=== PATIENT | female | born 1970 | race Caucasian/White ===

== ENCOUNTER → 2017-03-23 08:11 | Outpatient (CLI) | payer OTHER, SELFPAY ==
[2017-03-23 09:36] LABS: T4 Free Direct 1.27 ng/dL (0.76-1.46); Thyroid Stim Hormone (TSH) 0.15 uIU/mL (0.358-3.74)
== END ==
PROVIDERS: Family Provider Family Medicine; PCP Family Medicine; Visit Provider Family Medicine
DX: E03.9 Hypothyroidism, unspecified (principal)
CPT/HCPCS: 36415; 84439; 84443

== ENCOUNTER → 2017-05-24 16:14 | Outpatient (CLI) | payer OTHER, SELFPAY ==
[2017-05-24 17:49] LABS: Thyroid Stim Hormone (TSH) 1.36 uIU/mL (0.358-3.74)
== END ==
PROVIDERS: Family Provider Family Medicine; PCP Family Medicine; Visit Provider Family Medicine
DX: E03.9 Hypothyroidism, unspecified (principal)
CPT/HCPCS: 36415; 84443

== ENCOUNTER → 2017-08-01 07:57 | Outpatient (CLI) | payer OTHER, SELFPAY ==
--- NOTE | 2017-08-01 08:01 | BI_ITS ---
MAMMOGRAPHY - BILATERAL SCREENING REASON FOR EXAM: Female, 46 years old. Routine annual screening examination. PERTINENT HISTORY: Non-contributory. TECHNIQUE: Digital bilateral breast alysia (3D mammographic acquisition) in the CC and MLO projections. 2-D mediolateral oblique (MLO) and craniocaudad (CC) views of both breasts were obtained. CAD: Full Field Digital Mammography with Computer Added Detection was performed. COMPARISON: Comparison is made with prior study dated July 26, 2016 and March 05, 2016. FINDINGS: Breast Composition: The breasts are extremely dense, which lowers the sensitivity of mammography. There are no dominant masses or suspicious calcifications. No other significant abnormalities are identified. There has been no significant change since the prior study. BI/SCREENING MAMM (CAD), BILAT IMPRESSION: Stable bilateral screening mammogram. Yearly follow-up mammogram recommended. (A) ASSESSMENT CATEGORY: BIRADS Category 1: Negative. A letter regarding these results will be sent to the patient by the facility within 30 days. Approximately 10% of breast cancers are not detected by mammography. A normal mammogram should not delay biopsy of a clinically suspicious abnormality. [id number] Electronically Signed: Ellis Jones MD at 7:49 EDT Tel [phone], Service support ,
== END ==
PROVIDERS: Family Provider Family Medicine; PCP Family Medicine; Visit Provider Obstetrics & Gynecology
DX: Z12.31 Encounter for screening mammogram for malignant neoplasm of breast (principal)
CPT/HCPCS: 77063; 77067

== ENCOUNTER → 2017-09-09 07:48 | Outpatient (CLI) | payer OTHER, SELFPAY ==
[2017-09-09 10:16] LABS: Hematocrit 37.8 % (37-47); Hemoglobin 12.9 g/dl (12.0-15.0); Mean Corp Hgb Conc 34.1 g/gl (32-36); Mean Corpuscular Hgb 31.4 pg (27.0-32.0); Mean Platelet Vol. 11.1 fl (6.2-12.0); Platelet Count 193 K/mm3 (150-450); RBC Distribution Width CV 11.8 % (11.6-14.6); RBC Distribution Width SD 39.3 fl (35.1-43.9); Red Blood Count 4.11 M/mm3 (4.2-5.4)
[2017-09-09 10:21] LABS: Scan Indicated on CBC? Y/N NO
[2017-09-09 10:29] LABS: Cholesterol 207 mg/dL (200); Glucose 80 mg/dL (74-106); High Density Lipoprotein 67 mg/dL; T4 Free Direct 1.14 ng/dL (0.76-1.46); Thyroid Stim Hormone (TSH) 1.44 uIU/mL (0.358-3.74); Triglycerides 69 mg/dL; Very Low Density Lipoprotein 14 mg/dL (5-40)
== END ==
PROVIDERS: Family Provider Family Medicine; PCP Family Medicine; Visit Provider Family Medicine
DX: Z00.00 Encounter for general adult medical examination without abnormal findings (principal); E03.9 Hypothyroidism, unspecified; Z13.220 Encounter for screening for lipoid disorders
CPT/HCPCS: 36415; 80061; 82306; 82947; 84439; 84443; 85027

== ENCOUNTER → 2018-08-15 | Outpatient (CLI) | payer OTHER, SELFPAY ==
--- NOTE | 2018-08-15 08:39 | BI_ITS ---
MAMMOGRAPHY - BILATERAL SCREENING REASON FOR EXAM: Female, 47 years old. Routine annual screening examination. PERTINENT HISTORY: Non-contributory. TECHNIQUE: Digital bilateral breast festus (3D mammographic acquisition) in the CC and MLO projections. 2-D mediolateral oblique (MLO) and craniocaudad (CC) views of both breasts were obtained. CAD: Full Field Digital Mammography with Computer Added Detection was performed. COMPARISON: Comparison is made with prior study dated August 01, 2017 and July 26, 2016. FINDINGS: Breast Composition: The breasts are extremely dense, which lowers the sensitivity of mammography. There are no dominant masses or suspicious calcifications. No other significant abnormalities are identified. There has been no significant change since the prior study. BI/SCREEN MAMM (CAD) W/FESTUS BILAT IMPRESSION: Stable bilateral screening mammogram. Yearly follow-up mammogram recommended. (A) ASSESSMENT CATEGORY: BIRADS Category 1: Negative. A letter regarding these results will be sent to the patient by the facility within 30 days. Approximately 10% of breast cancers are not detected by mammography. A normal mammogram should not delay biopsy of a clinically suspicious abnormality. [id number] Electronically Signed: Ellis Jones, at 10:12 EDT , Service support ,
== END | disposition home or self-care (01) ==
LOC: OPBI 08:38
PROVIDERS: Family Provider Family Medicine; PCP Family Medicine; Referring Provider Obstetrics & Gynecology; Visit Provider Obstetrics & Gynecology
DX: Z12.31 Encounter for screening mammogram for malignant neoplasm of breast (principal)
CPT/HCPCS: 77063; 77067

== ENCOUNTER → 2018-09-20 | Outpatient (CLI) | payer OTHER, SELFPAY ==
[2018-09-20 10:18] LABS: Anion Gap 7 (5-15); BUN 11 mg/dL (7-18); BUN/Creat Ratio 15.2 RATIO (10-20); Calcium,Total 9.1 mg/dL (8.5-10.1); Chloride 106 mmol/L (98-107); Cholesterol 212 mg/dL (200); Creatinine, Serum 0.72 mg/dL (0.55-1.02); EST Glomerular Filtration Rate 91 mL/min (>60); Est Glom Filt Rate - Afr Amer 110 mL/min (>60); Glucose 84 mg/dL (74-106); High Density Lipoprotein 64 mg/dL; Potassium 4.2 mmol/L (3.5-5.1); Sodium Level 141 mmol/L (136-145); Thyroid Stim Hormone (TSH) 1.09 uIU/mL (0.358-3.74); Triglycerides 60 mg/dL; Very Low Density Lipoprotein 12 mg/dL (5-40)
== END | disposition home or self-care (01) ==
LOC: LAB 08:59
PROVIDERS: Family Provider Family Medicine; PCP Family Medicine; Referring Provider Family Medicine; Visit Provider Family Medicine
DX: E03.9 Hypothyroidism, unspecified (principal)
CPT/HCPCS: 36415; 80048; 80061; 84439; 84443

== ENCOUNTER → 2019-08-13 10:16 | Outpatient (CLI) | payer OTHER, SELFPAY ==
--- NOTE | 2019-08-13 10:18 | BI_ITS ---
MAMMOGRAPHY - BILATERAL SCREENING REASON FOR EXAM: Female, 48 years old. Routine annual screening examination. PERTINENT HISTORY: Non-contributory. TECHNIQUE: Digital bilateral breast festus (3D mammographic acquisition) in the CC and MLO projections. 2-D mediolateral oblique (MLO) and craniocaudad (CC) views of both breasts were obtained. CAD: Full Field Digital Mammography with Computer Added Detection was performed. COMPARISON: Comparison is made with prior study dated August 15, 2018 and August 01, 2017. FINDINGS: Breast Composition: The breasts are extremely dense, which lowers the sensitivity of mammography. There are no dominant masses or suspicious calcifications. No other significant abnormalities are identified. There has been no significant change since the prior study. BI/SCREEN MAMM (CAD) W/FESTUS BILAT IMPRESSION: Stable bilateral screening mammogram. Yearly follow-up mammogram recommended. (A) ASSESSMENT CATEGORY: BIRADS Category 1: Negative. A letter regarding these results will be sent to the patient by the facility within 30 days. Approximately 10% of breast cancers are not detected by mammography. A normal mammogram should not delay biopsy of a clinically suspicious abnormality. [id number] Electronically Signed: Ellis Jones, at 10:53 EDT , Service support ,
== END ==
PROVIDERS: PCP Family Medicine; Referring Provider Obstetrics & Gynecology; Visit Provider Obstetrics & Gynecology
DX: Z12.31 Encounter for screening mammogram for malignant neoplasm of breast (principal)
CPT/HCPCS: 77063; 77067

== ENCOUNTER → 2019-09-23 08:11 | Outpatient (CLI) | payer OTHER, SELFPAY ==
[2019-09-23 11:21] LABS: Anion Gap 7 (5-15); BUN 12 mg/dL (7-18); BUN/Creat Ratio 17.1 RATIO (10-20); Calcium,Total 9.3 mg/dL (8.5-10.1); Chloride 101 mmol/L (98-107); Cholesterol 237 mg/dL (200); EST Glomerular Filtration Rate 94 mL/min (>60); Est Glom Filt Rate - Afr Amer 113 mL/min (>60); Glucose 84 mg/dL (74-106); High Density Lipoprotein 64 mg/dL; Potassium 4.2 mmol/L (3.5-5.1); Sodium Level 139 mmol/L (136-145); Thyroid Stim Hormone (TSH) 1.19 uIU/mL (0.358-3.74); Triglycerides 65 mg/dL; Very Low Density Lipoprotein 13 mg/dL (5-40)
== END ==
PROVIDERS: PCP Family Medicine; Referring Provider Family Medicine; Visit Provider Family Medicine
DX: Z00.00 Encounter for general adult medical examination without abnormal findings (principal); E03.9 Hypothyroidism, unspecified; Z13.220 Encounter for screening for lipoid disorders
CPT/HCPCS: 36415; 80048; 80061; 84439; 84443

== ENCOUNTER → 2020-01-29 14:48 | Outpatient (CLI) | payer OTHER, SELFPAY ==
[2020-01-29 17:54] LABS: T4 Free Direct 1.33 ng/dL (0.76-1.46); Thyroid Stim Hormone (TSH) 0.49 uIU/mL (0.358-3.74)
== END ==
PROVIDERS: PCP Family Medicine; Referring Provider Family Medicine; Visit Provider Family Medicine
DX: E03.9 Hypothyroidism, unspecified (principal)
CPT/HCPCS: 36415; 84439; 84443

== ENCOUNTER → 2020-07-12 12:34 | Outpatient (CLI) | payer OTHER, SELFPAY ==
--- NOTE | 2020-07-12 12:36 | BI_ITS ---
MAMMOGRAPHY - BILATERAL SCREENING REASON FOR EXAM: Female, 49 years old. Routine annual screening examination. PERTINENT HISTORY: Non-contributory. TECHNIQUE: Digital bilateral breast festus (3D mammographic acquisition) in the CC and MLO projections. 2-D mediolateral oblique (MLO) and craniocaudad (CC) views of both breasts were obtained. CAD: Full Field Digital Mammography with Computer Added Detection was performed. COMPARISON: Comparison is made with prior examination dated 08/13/2019 and 08/15/2018. FINDINGS: Breast Composition: The breasts are extremely dense, which lowers the sensitivity of mammography. There are no dominant masses or suspicious calcifications. No other significant abnormalities are identified. There has been no significant change since the prior study. BI/SCRN MAMM (CAD)W/FESTUS BILAT IMPRESSION: Stable bilateral screening mammogram. Yearly follow-up mammogram recommended. (A) ASSESSMENT CATEGORY: BIRADS Category 1: Negative. A letter regarding these results will be sent to the patient by the facility within 30 days. Approximately 10% of breast cancers are not detected by mammography. A normal mammogram should not delay biopsy of a clinically suspicious abnormality. [id number] Electronically Signed: Ellis Jones MD at 13:10 EDT , Service support ,
== END ==
PROVIDERS: PCP Family Medicine; Referring Provider Obstetrics & Gynecology; Visit Provider Obstetrics & Gynecology
DX: Z12.31 Encounter for screening mammogram for malignant neoplasm of breast (principal)
CPT/HCPCS: 77063; 77067

== ENCOUNTER → 2020-09-22 07:50 | Outpatient (CLI) | payer OTHER, SELFPAY ==
[2020-09-22 10:49] LABS: Anion Gap 8 (5-15); BUN 13 mg/dL (7-18); BUN/Creat Ratio 19.2 RATIO (10-20); Calcium,Total 9.6 mg/dL (8.5-10.1); Chloride 102 mmol/L (98-107); Cholesterol 252 mg/dL (200); Creatinine, Serum 0.68 mg/dL (0.55-1.02); EST Glomerular Filtration Rate 97 mL/min (>60); Est Glom Filt Rate - Afr Amer 117 mL/min (>60); Glucose 90 mg/dL (74-106); High Density Lipoprotein 66 mg/dL; Potassium 4.7 mmol/L (3.5-5.1); Sodium Level 139 mmol/L (136-145); T4 Free Direct 1.19 ng/dL (0.76-1.46); Thyroid Stim Hormone (TSH) 0.91 uIU/mL (0.358-3.74); Triglycerides 97 mg/dL; Very Low Density Lipoprotein 19 mg/dL (5-40)
== END ==
PROVIDERS: PCP Family Medicine; Referring Provider Family Medicine; Visit Provider Family Medicine
DX: E03.9 Hypothyroidism, unspecified (principal)
CPT/HCPCS: 36415; 80048; 80061; 84439; 84443

== ENCOUNTER → 2020-09-29 09:08 | Outpatient (CLI) | payer OTHER, SELFPAY ==
--- NOTE | 2020-09-29 09:10 | RAD_ITS ---
STUDY: X-RAY - PARANASAL SINUSES REASON FOR EXAM: Female, 49 years old. MIGRAINE W/O AURA TECHNIQUE: 3 view(s) of the paranasal sinuses were obtained. COMPARISON: None. FINDINGS: Normal visualized frontal, maxillary, ethmoidal and sphenoid sinuses. Normal visualized facial bones. The soft tissue structures are unremarkable. RAD/Sinuses min 3 Views IMPRESSION: Normal x-rays of the paranasal sinuses. Electronically Signed: Ellis Jones MD at 9:39 EDT , Service support ,
== END ==
PROVIDERS: PCP Family Medicine; Referring Provider Family Medicine; Visit Provider Family Medicine
DX: G43.001 Migraine without aura, not intractable, with status migrainosus (principal)
CPT/HCPCS: 70220

== ENCOUNTER → 2020-12-29 | Outpatient (CLI) | payer OTHER, SELFPAY ==
--- NOTE | 2020-12-29 12:00 | LES_PTH ---
PATIENT: EMILIO HERNANDES LOC: [facility] U#:[id number] AGE/SX: 50/F ROOM: RE12/29/[address]: Dr. Harley Ordonez MD : 1970 BED: DIS: 12/29/2020 SPEC #: [id number] RECD: 12/29/20 14:57 STATUS: MAMADOU DIAZ #: [id number] RICARDO: 12/29/20 12:[address]: Harley Ordonez DEPT: SURGICAL PATHOLOGY RECD BY: Caro Bustamante Tissues: Skin of neck, NOS Procedures: Surgery Specimen Level IV HEADER OPERATION: Excision PRE-OP DIAGNOSIS: Rule out melanoma TISSUE SUBMITTED: Nevus atypical MICROSCOPIC DIAGNOSIS Atypical nevus, punch biopsy: Pigmented seborrheic keratosis. Negative for melanocytic lesion. See comment. HEENA:[email or web address] 01/02/2021 COMMENT The lesion appears to be completely excised in the planes of sections examined. MICROSCOPIC DESCRIPTION Slides are reviewed. GROSS DESCRIPTION Received is one container labeled with the patient's name and not further designated. The specimen consists of a light blount punch biopsy of skin measuring 5 mm in diameter and 0.6 cm in thickness. The cutaneous surface contains a flat hyperpigmented lesion measuring approximately 3 mm. The specimen is inked, bisected and totally submitted in one cassette. / AM:gonzalez 12/30/20 TC:1 CPT: 13144
== END | disposition home or self-care (01) ==
LOC: LABSPEC 15:05
PROVIDERS: PCP Family Medicine; Visit Provider Family Medicine
DX: L82.1 Other seborrheic keratosis (principal)
CPT/HCPCS: 88305

== ENCOUNTER 2021-04-03 17:28 | Outpatient (CLI) | payer MEDICARE, SELFPAY | END 2021-04-03 23:59 | disposition home or self-care (01) | PROVIDERS: PCP Family Medicine; Visit Provider Family Medicine | DX: Z20.822 Contact with and (suspected) exposure to COVID-19 (principal) | CPT/HCPCS: 87635; U0003; U0005 ==

== ENCOUNTER → 2021-09-01 | Outpatient (CLI) | payer OTHER, SELFPAY ==
--- NOTE | 2021-09-01 14:06 | BI_ITS ---
MAMMOGRAPHY - BILATERAL SCREENING REASON FOR EXAM: Female, 50 years old. Routine annual screening examination. PERTINENT HISTORY: Non-contributory. TECHNIQUE: Digital bilateral breast festus (3D mammographic acquisition) in the CC and MLO projections. 2-D mediolateral oblique (MLO) and craniocaudad (CC) views of both breasts were obtained. CAD: Full Field Digital Mammography with Computer Added Detection was performed. COMPARISON: Comparison is made with prior study dated 07/12/2020 and 08/13/2019. FINDINGS: Breast Composition: The breasts are heterogeneously dense, which may obscure small masses. There are no dominant masses or suspicious calcifications. No other significant abnormalities are identified. There has been no significant change since the prior study. BI/SCRN MAMM (CAD)W/FESTUS BILAT IMPRESSION: Stable bilateral screening mammogram. Yearly follow-up mammogram recommended. (A) ASSESSMENT CATEGORY: BIRADS Category 1: Negative. A letter regarding these results will be sent to the patient by the facility within 30 days. Approximately 10% of breast cancers are not detected by mammography. A normal mammogram should not delay biopsy of a clinically suspicious abnormality. [id number] Electronically Signed: Ellis Jones MD at 14:47 EDT ,
== END | disposition home or self-care (01) ==
LOC: OPBI 14:04
PROVIDERS: PCP Family Medicine; Referring Provider Obstetrics & Gynecology; Visit Provider Obstetrics & Gynecology
DX: Z12.31 Encounter for screening mammogram for malignant neoplasm of breast (principal)
CPT/HCPCS: 77063; 77067

== ENCOUNTER → 2021-10-21 | Outpatient (CLI) | payer OTHER, SELFPAY ==
[2021-10-21 12:08] LABS: Anion Gap 6 (5-15); BUN 14 mg/dL (7-18); BUN/Creat Ratio 20.1 RATIO (10-20); Calcium,Total 9.5 mg/dL (8.5-10.1); Chloride 105 mmol/L (98-107); Cholesterol 234 mg/dL (200); EST Glomerular Filtration Rate 94 mL/min (>60); Est Glom Filt Rate - Afr Amer 114 mL/min (>60); Glucose 85 mg/dL (74-106); High Density Lipoprotein 65 mg/dL; Potassium 4.1 mmol/L (3.5-5.1); Sodium Level 138 mmol/L (136-145); T4 Free Direct 1.09 ng/dL (0.76-1.46); Thyroid Stim Hormone (TSH) 0.93 uIU/mL (0.358-3.74); Triglycerides 66 mg/dL; Very Low Density Lipoprotein 13 mg/dL (5-40)
== END | disposition home or self-care (01) ==
LOC: LAB 10:21
PROVIDERS: PCP Family Medicine; Referring Provider Family Medicine; Visit Provider Family Medicine
DX: E03.9 Hypothyroidism, unspecified (principal); Z13.220 Encounter for screening for lipoid disorders; Z13.1 Encounter for screening for diabetes mellitus
CPT/HCPCS: 36415; 80048; 80061; 84439; 84443

== ENCOUNTER → 2022-09-03 | Outpatient (CLI) | payer OTHER, SELFPAY ==
--- NOTE | 2022-09-03 07:12 | BI_ITS ---
MAMMOGRAPHY - BILATERAL SCREENING REASON FOR EXAM: Female, 51 years old. Routine annual screening examination. PERTINENT HISTORY: Non-contributory. TECHNIQUE: Digital bilateral breast festus (3D mammographic acquisition) in the CC and MLO projections. 2-D mediolateral oblique (MLO) and craniocaudad (CC) views of both breasts were obtained. CAD: Full Field Digital Mammography with Computer Added Detection was performed. COMPARISON: Comparison is made with prior study dated September 01, 2021 and July 13, 2019. FINDINGS: Breast Composition: The breasts are extremely dense, which lowers the sensitivity of mammography. There are no dominant masses or suspicious calcifications. No other significant abnormalities are identified. There has been no significant change since the prior study. BI/SCRN MAMM (CAD)W/FESTUS BILAT IMPRESSION: Stable bilateral screening mammogram. Yearly follow-up mammogram recommended. (A) ASSESSMENT CATEGORY: BIRADS Category 1: Negative. A letter regarding these results will be sent to the patient by the facility within 30 days. Approximately 10% of breast cancers are not detected by mammography. A normal mammogram should not delay biopsy of a clinically suspicious abnormality. [id number] Electronically Signed: Ellis Jones MD at 8:48 EDT ,
== END | disposition home or self-care (01) ==
LOC: OPBI 07:11
PROVIDERS: PCP Family Medicine; Referring Provider Obstetrics & Gynecology; Visit Provider Obstetrics & Gynecology
DX: Z12.31 Encounter for screening mammogram for malignant neoplasm of breast (principal)
CPT/HCPCS: 77063; 77067

== ENCOUNTER → 2022-11-16 | Outpatient (CLI) | payer OTHER, SELFPAY ==
[2022-11-16 10:18] LABS: Hematocrit 38.1 % (37-47); Hemoglobin 12.4 g/dL (12.0-15.0); Mean Corp Hgb Conc 32.5 g/dL (32-36); Mean Corpuscular Hgb 30.5 pg (27.0-32.0); Mean Corpuscular Volume 93.6 fL (81-99); Mean Platelet Vol. 10.6 fl (6.2-12.0); Platelet Count 261 K/mm3 (150-450); RBC Distribution Width CV 12.3 % (11.6-14.6); RBC Distribution Width SD 42.2 fl (35.1-43.9); Red Blood Count 4.07 M/mm3 (4.2-5.4); White Blood Count 4.3 K/mm3 (4.4-11.0)
[2022-11-16 10:56] LABS: Anion Gap 4 (5-15); BUN 10 mg/dL (7-18); Calcium,Total 9.1 mg/dL (8.5-10.1); Chloride 104 mmol/L (98-107); Cholesterol 208 mg/dL (200); Creatinine, Serum 0.77 mg/dL (0.55-1.02); EST Glomerular Filtration Rate 83 mL/min (>60); Est Glom Filt Rate - Afr Amer 101 mL/min (>60); Glucose 87 mg/dL (74-106); High Density Lipoprotein 50 mg/dL; Potassium 3.9 mmol/L (3.5-5.1); Sodium Level 137 mmol/L (136-145); T4 Free Direct 1.32 ng/dL (0.76-1.46); Thyroid Stim Hormone (TSH) 1.75 uIU/mL (0.358-3.74); Triglycerides 104 mg/dL; Very Low Density Lipoprotein 21 mg/dL (5-40)
== END | disposition home or self-care (01) ==
LOC: MTLAB 07:14
PROVIDERS: PCP Family Medicine; Referring Provider Family Medicine; Visit Provider Family Medicine
DX: E03.9 Hypothyroidism, unspecified (principal); Z13.220 Encounter for screening for lipoid disorders; Z80.6 Family history of leukemia; Z13.1 Encounter for screening for diabetes mellitus
CPT/HCPCS: 36415; 80048; 80061; 84439; 84443; 85027

== ENCOUNTER → 2023-03-06 | Outpatient (CLI) | payer OTHER, SELFPAY ==
--- OUTSIDE RECORDS SUMMARY | 2023-03-06 10:40 | XMS RPT_ITS | CCD ---
Author Name Unknown Address [id number] [place] [address] Organization [facility] Care Team Providers Care Mail Censor Name Role Phone Harley Lynn MD Primary Care Provider HAYLEY KEVIN Attending Unavail [facility] HARLEY LYNN Primary Care Unavailabl e Allergies Allergy Classification Reported Allergen(s) Allergy Type Date of Onset Reaction(s) Facility (2 sources) Erythromycin; Translations: [ERYTHROMYCIN] Drug Allergy 5 Intolerance [facility] Work Phone: (2 sources) Penicillins; Translations: [PENICILLINS] Drug Allergy 5 [facility] (2 sources) Sulfonamides (Antibiotic); Translations: [SULFA (SULFONAMIDE ANTIBIOTICS)] Propensity to adverse reactions to drug 5 [facility] (2 sources) venlafaxine; Translations: [VENLAFAXINE HCL] Drug Allergy 9 Intolerance [facility] Medications Completed/Discontinued Medications Medication Drug Class(es) Dates Sig (Normalized) Sig (Original) cholecalciferol 0.025 mg oral capsule (1 source) Vitamin D take 1 capsule by mouth once daily Cholecalciferol, Vitamin D3, (VITAMIN D) 1,000 unit cap Take 1,000 Units by mouth once daily. 0 Active Problems Active Problems Problem Classification Problem Date Documented Da te Episodic/Chronic Headache; including migraine (2 sources) Migraine variants; Translations: [Other migraine, not intractable, without status migrainosus] Onset: 07-23-2007 06-18-2005 Chronic Other female genital disorders (1 source) Premenstrual tension syndrome; Translations: [Premenstrual tension syndrome] Onset: 07-07-2008 07-07-2008 Chronic Other gastrointestinal disorders (1 source) Constipation; Translations: [Constipation, unspecified] 06-18-2005 Episodic Other inflammatory condition of skin (1 source) Rosacea; Translations: [Rosacea, unspecified] Onset: 09-08-2007 09-08-2007 Chronic Other screening for suspected conditions (not mental disorders or infectious disease) (3 sources) Patient encounter status; Translations: [Encounter for screening mammogram for malignant neoplasm of breast] Onset: 07-07-2008 01-23-2023 Episodic Past or Other Problems Problem Classification Problem Date Documented Da te Episodic/Chronic Conditions associated with dizziness or vertigo (1 source) Peripheral vertigo; Translations: [Other peripheral vertigo, unspecified ear] Onset: 09-08-2007 09-08-2007 Episodic Results Test Name Value Interpretation Reference Range Facil ity Vital Signs Date Time Vital Sign Value Performing Clinician Faci lity 01-23-2023 13:11-0500 Body height 160 cm Hayley Ascencio MD Work Phone: [facility] 01-23-2023 13:11-0500 Body weight 51.53 kg Hayley Ascencio MD Work Phone: [facility] 01-23-2023 13:11-0500 Diastolic blood pressure 80 mm[Hg] Hayley Ascencio MD Work Phone: [facility] 01-23-2023 13:11-0500 Systolic blood pressure 126 mm[Hg] Hayley Ascencio MD Work Phone: [facility] Encounters Encounter Date Encounter Type Care Provider Facility Start: 01-23-2023 End: 01-24-2023 ambulatory HAYLEY ASCENCIO Facility:[facility] Start: 01-23-2023 Encounter for gynecological examination (general) (routine) without abnormal findings HAYLEY ASCENCIO [facility] Start: 01-23-2023 End: 01-23-2023 Patient encounter procedure Hayley Ascencio MD Work Phone: OB/Gynecology Procedures Date Procedure Procedure Detail Performing Clinician Start: 09-05-2007 Lipid 1996 panel - S jus or Plasma Hayley Ascencio MD Work Phone: Plan of Treatment Date Care Activity Detail Author Start: 09-24-2027 Urine microalbumin profile DTaP,Tdap,Td Vaccine (2 - Td or Tdap) [facility] Start: 08-25-2026 Screening for malignant neoplasm of cervix [facility] Start: 09-08-2024 Screening for malignant neoplasm of colon [facility] Start: 09-04-2023 Screening for malignant neoplasm of breast Mammogram Screening [facility] Start: 10-12-2022 Covid-19 Vaccine () Covid-19 Vaccine () [facility] Start: 02-11-2022 Depression Assessment Depression Assessment [facility] Start: 2018 Shingrix Vaccine (1 of 2) Shingrix Vaccine (1 of 2) [facility] Start: 2013 Diabetes Screening Diabetes Screening [facility] Start: 2013 Lipid panel Lipid Screening [facility] Start: 2013 Screening for malignant neoplasm of colon [facility] Start: 1986 Hepatitis C screening Hepatitis C Screening [facility] Start: 1986 HIV screening HIV Screening [facility] Start: 1968 Hepatitis B Vaccine (1 of 3 - 3-dose series) Hepatitis B Vaccine (1 of 3 - 3-dose series) [facility] End: 02-22-2024 FRANCIA SCREENING W FESTUS FRANCIA SCREENING W FESTUS Radiology Routine Encounter for screening mammogram for malignant neoplasm of breast 1 Occurrences starting 01/23/2023 until 02/22/2024 [facility] Work Phone: Immunizations Immunization Date Immunization Notes Care Provider Fa cility 03-16-2020 COVID-19 original vaccine, age 12+ yr, monovalent (PFIZER-BIONTECH - PURPLE TOP) Hayley Ascencio MD Work Phone: [facility] Work Phone: 02-24-2020 COVID-19 original vaccine, age 12+ yr, monovalent (PFIZER-BIONTECH - PURPLE TOP) Hayley Ascencio MD Work Phone: [facility] Work Phone: 09-23-2017 tetanus toxoid, redu mariama diphtheria toxoid, and acellular pertussis vaccine, adsorbed Hayley Ascencio MD Work Phone: [facility] Work Phone: 12-17-2005 influenza virus vaccine, unspecified formulation Hayley Ascencio MD Work Phone: [facility] 01-11-2001 influenza virus vaccine, whole virus Hayley Ascencio MD Work Phone: [facility] 01-12-2000 influenza virus vaccine, whole virus Hayley Ascencio MD Work Phone: [facility] 12-12-1998 influenza virus vaccine, whole virus Hayley Ascencio MD Work Phone: [facility] Payers Date Payer Category Payer Private Health Insurance [facility] [employer] CHOICE PLUS [id number] 2021-Present [phone] [address] [address] [place] [address] O [id number] 2021 Unknown [id number] Social History Date Type Detail Facility Start: 01-23-2023 Tobacco smoking stat RUSTIS Ex-smoker [facility] End: 12-13-2003 History of tobacco use Current smoker [facility] End: 12-13-2003 History of tobacco use Cigarette Smoker [facility] Start: 01-23-2023 Tobacco use and exposure Smoke less tobacco non-user [facility] Start: 01-23-2023 Alcohol intake Lifetime non-d kobe (finding) [facility] Start: 10-08-2022 End: 01-23-2023 History of Social function [facility] Start: 10-08-2022 End: 01-23-2023 Tobacco use panel [facility] National Score (1-10 0), lower number is lower risk 54 [facility] Start: 01-23-2023 Tobacco Comment quit smoking [address] [facility] Start: 1970 Sex Assigned At Not on file C [facility] Start: 08-24-2021 Gender identity Identifies as female gender (finding) [facility] Start: 08-24-2021 Sexual orientation Heterosexual (leigh tolu) [facility] Progress note 01-23-2023 Note Date & Type Note Facility 01-23-2023 Note HNO ID: [id number] Author: Hayley Kevin MD Service: ? Author Type: Physician Type: Progress Notes Filed: 01/23/2023 2:06 PM Note Text: Nonprofit Fundraiser offered: Patient declines. Shruthi is a 52 year old who presents for an annual gynecologic exam without complaints. New grandson age 3 weeks old. Does not always Feel safe at home- has reported to police- still with but considering leaving- he is still using ETOH. Postmenopausal: Yes HRT use: No. Last Pap: 09/01/2021 normal HPV: 08/29/2021 negative History of abnormal pap: No Last mammogram: 2022 normal History of abnormal mammogram: No Sexually active: Yes History of STDS: None Patient concerns for STD exposure: No. 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 Professor History Comments: Sexual Activity: Not Currently; Male; Tubal Contraception: Tubal Ligation PAST MEDICAL HISTORY Diagnosis Date Libido, decreased 09/29/2010 Malaise and fatigue Resolved on Thyroid Premenstrual tension syndromes PMS Unspecified constipation Constipation Unspecified hypothyroidism 2010 Hypothyroidism Unspecified legally induced without mention of complication Variants of migraine, not elsewhere classified, without mention of intractable migraine without mention of status migrainosus PAST SURGICAL HISTORY Procedure Laterality Date LIG/TRNSXJ FLP TUBE ABDL/VAG APPR UNI/BI 2001 Tubal ligation OFFICE ENDOMETRIAL ABLATION 10/31/2013 PAST SURGICAL HISTORY OF wisdom teeth suction dANDc 1987 FAMILY HISTORY Problem Relation Age of Onset Cancer Mother Arthritis Mother Thyroid Mother Hypertension Mother Clotting Disorder Father in lungs Thyroid Sister other (Bi-Polar) Sister other (Bi-Polar) Brother Thyroid Maternal Grandmother Heart Maternal Grandfather Thyroid Paternal Grandmother Osteoporosis Paternal Grandmother Diabetes Maternal Aunt Thyroid Maternal Aunt Several on both sides of family SOCIAL HISTORY Social History Tobacco Use Smoking status: Former Years: 6 Types: Cigarettes Quit date: 12/13/2003 Years since quittin.1 Smokeless tobacco: Never Tobacco comments: quit smoking 1993 Vaping Use Vaping Use: Never used Substance Use Topics Alcohol use: Never Drug use: No REVIEW OF SYSTEMS Abdomen: No abdominal pain, nausea, vomiting, diarrhea, or constipation. No bloating, early satiety, indigestion, or increased flatulence. Bladder: No dysuria, gross hematuria, urinary frequency, urinary urgency, or incontinence Breast: No breast lumps, nipple d/c, overlying skin changes, redness or skin retraction Allergies and current medication updated:Yes EXAM: BP 126/80 Ht 5' 3 (1.60m) Wt 113 lb 9.6 oz (51.5kg) LMP 06/16/2018 BMI 20.13 kg/(m2). GENERAL: pleasant, female in no apparent distress HEENT: Normocephalic, atraumatic, mucus membranes moist, and no lesions NECK: Supple, full range of motion, no adenopathy, and thyroid normal DERMATOLOGY: Normal, without lesions, non-icteric, and non-hirsute BREAST: soft, non-tender, symmetric, no dominant mass, normal nipple-areolar complex, no lymphadenopathy, and no nipple discharge ABDOMEN: soft, non-tender, and no masses PELVIC: external genitalia normal, normal Bartholin's glands, urethra, Meacham's glands, no vulvar lesions, no cervical lesions, good vaginal support, physiologic discharge present, normal appearing perineal body and perianal region BIMANUAL: uterus normal size, shape and consistency, no adnexal masses, and non-tender RECTOVAGINAL: deferred. NEURO: alert and oriented x3,exam grossly non-focal EXTREMITIES: normal ASSESSMENT/PLAN: 1) Health maintenance: Pap/HPV up to date. Mammogram ordered Mammogram up to date Nutrition, exercise and routine health maintenance exams reviewed. Calcium/Vitamin D supplementation information provided. Colon cancer screening: cologuard done 2022 2) Follow up one year or sooner as needed 3) Offered SW consult. Discussed having safe plan in place. Hayley Hutchins MD [facility] History of Present illness Narrative 01-23-2023 Hayley Kevin MD - 01/23/2023 1:10 PM EST Note Date & Type Note Facility 01-23-2023 History of Presen t illness Narrative Nonprofit Fundraiser offered: Patient declines. Shruthi is a 52 year old who presents for an annual gynecologic exam without complaints. New grandson age 3 weeks old. Does not always Feel\ safe at home- has reported to police- still with but considering leaving- he is still using ETOH. Postmenopausal: Yes HRT use: No. Last Pap: 09/01/2021 normal HPV: 08/29/2021 negative History of abnormal pap: No Last mammogram: 2022 normal History of abnormal mammogram: No Sexually active: Yes History of STDS: None Patient concerns for STD exposure: No. 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 Professor History Comments: Sexual Activity: Not Currently; Male; Tubal Contraception: Tubal Ligation PAST MEDICAL HISTORY Diagnosis Date Libido, decreased 09/29/2010 Malaise and fatigue Resolved on Thyroid Premenstrual tension syndromes PMS Unspecified constipation Constipation Unspecified hypothyroidism 2010 Hypothyroidism Unspecified legally induced without mention of complication Variants of migraine, not elsewhere classified, without mention of intractable migraine without mention of status migrainosus PAST SURGICAL HISTORY Procedure Laterality Date LIG/TRNSXJ FLP TUBE ABDL/VAG APPR UNI/BI 2001 Tubal ligation OFFICE ENDOMETRIAL ABLATION 10/31/2013 PAST SURGICAL HISTORY OF wisdom teeth suction d&c 1987 FAMILY HISTORY Problem Relation Age of Onset Cancer Mother Arthritis Mother Thyroid Mother Hypertension Mother Clotting Disorder Father in lungs Thyroid Sister other (Bi-Polar) Sister other (Bi-Polar) Brother Thyroid Maternal Grandmother Heart Maternal Grandfather Thyroid Paternal Grandmother Osteoporosis Paternal Grandmother Diabetes Maternal Aunt Thyroid Maternal Aunt Several on both sides of family SOCIAL HISTORY Social History Tobacco Use Smoking status: Former Years: 6 Types: Cigarettes Quit date: 12/13/2003 Years since quittin.1 Smokeless tobacco: Never Tobacco comments: quit smoking 1993 Vaping Use Vaping Use: Never used Substance Use Topics Alcohol use: Never Drug use: No REVIEW OF SYSTEMS Abdomen: No abdominal pain, nausea, vomiting, diarrhea, or constipation. No bloating, early satiety, indigestion, or increased flatulence. Bladder: No dysuria, gross hematuria, urinary frequency, urinary urgency, or incontinence Breast: No breast lumps, nipple d/c, overlying skin changes, redness or skin retraction Allergies and current medication updated:Yes EXAM: BP 126/80 Ht 5' 3 (1.60m) Wt 113 lb 9.6 oz (51.5kg) LMP 06/16/2018 BMI 20.13 kg/(m^2). GENERAL: pleasant, female in no apparent distress HEENT: Normocephalic, atraumatic, mucus membranes moist, and no lesions NECK: Supple, full range of motion, no adenopathy, and thyroid normal DERMATOLOGY: Normal, without lesions, non-icteric, and non-hirsute BREAST: soft, non-tender, symmetric, no dominant mass, normal nipple-areolar complex, no lymphadenopathy, and no nipple discharge ABDOMEN: soft, non-tender, and no masses PELVIC: external genitalia normal, normal Bartholin's glands, urethra, Meacham's glands, no vulvar lesions, no cervical lesions, good vaginal support, physiologic discharge present, normal appearing perineal body and perianal region BIMANUAL: uterus normal size, shape and consistency, no adnexal masses, and non-tender RECTOVAGINAL: deferred. NEURO: alert and oriented x3,exam grossly non-focal EXTREMITIES: normal ASSESSMENT/PLAN: 1) Health maintenance: Pap/HPV up to date. Mammogram ordered Mammogram up to date Nutrition, exercise and routine health maintenance exams reviewed. Calcium/Vitamin D supplementation information provided. Colon cancer screening: cologuard done 2022 2) Follow up one year or sooner as needed 3) Offered SW consult. Discussed having safe plan in place. Hayley Hutchins MD documented in this encounter [facility] History of Past illness Narrative 09-29-2010 Note Date & Type Note Facility documented as of this encounter (statuses as of 01/24/2023) [facility] Evaluation note Note Date & Type Note Facility documented in this encounter [facility] Reason for referral (narrative) Diagnostic Procedure Only (Routine) - Pending Review Note Date & Type Note Facility Referral ID Status Reason Start Date Expiration Date Visits Requested Visits Authorized [id number] Pending Review Auto-Generat ed Referral 3 02/22/2024 1 1 [facility] Summary Purpose Family History No Family History Records Found Advance Directives No Advanced Directives Records Found Additional Source Comments Source Comments (unrecognize d section and content) In the event this informatio n is protected by the Federal Confidentiality of Alcohol and Drug Abuse Patient Records regulations: The Federal rules restrict any use of the information to criminally investigate or prosecute any alcohol or drug abuse patient.[facility] Care Teams (unrecognized sec tion and content) INFORMATION SOURCE (unrecogn ized section and content) FOR RECORDS PERTAINING TO PATIENTS WHO ARE OR HAVE BEEN ENROLLED IN A CHEMICAL DEPENDENCY/SUBSTANCEABUSE PROGRAM, SOME INFORMATION MAY BE OMITTED. This clinical summary was aggregated from multiple sources. Caution should be exercised in using it in the provision of clinical care. This summary normalizes information from multiple sources, and as a consequence, information in this document may materially change the coding, format and clinical context of patient data. In addition, data may be omitted in some cases. CLINICAL DECISIONS SHOULD BE BASED ON THE PRIMARY CLINICAL RECORDS. [facility] [employer] [facility]. provides no warranty or guarantee of the accuracy or completeness of information in this document.
[2023-03-06 12:29] LABS: Erythrocyte Sedimentation Rate 9 mm/hr (0-30)
[2023-03-06 12:31] LABS: Hematocrit 35.9 % (37-47); Hemoglobin 11.8 g/dL (12.0-15.0); Mean Corp Hgb Conc 32.9 g/dL (32-36); Mean Corpuscular Volume 91.3 fL (81-99); Mean Platelet Vol. 10.4 fl (6.2-12.0); Platelet Count 274 K/mm3 (150-450); RBC Distribution Width CV 12.3 % (11.6-14.6); Red Blood Count 3.93 M/mm3 (4.2-5.4)
[2023-03-06 13:03] LABS: Vitamin B12 725 pg/mL (211-911); Vitamin D,25 Hydroxy 36.7 ng/mL
[2023-03-06 13:41] LABS: ALB/GLOB Ratio 1.4 RATIO (0.9-2.4); AST(SGOT) 18 U/L (15-37); Alanine Aminotransfer ALT/SGPT 39 U/L (13-56); Albumin, Serum 4.2 g/dL (3.2-5.0); Alkaline Phosphatase 89 U/L (45-117); Anion Gap 4 (5-15); BUN 12 mg/dL (7-18); Calcium,Total 9.8 mg/dL (8.5-10.1); Chloride 107 mmol/L (98-107); EST Glomerular Filtration Rate 92 mL/min (>60); Est Glom Filt Rate - Afr Amer 111 mL/min (>60); Ferritin 285 ng/mL (8-252); Glucose 85 mg/dL (74-106); Iron 82 ug/dL (50-170); Potassium 3.6 mmol/L (3.5-5.1); Protein, Total 7.2 g/dL (6.4-8.2); Sodium Level 139 mmol/L (136-145); T4 Free Direct 1.16 ng/dL (0.76-1.46); Thyroid Stim Hormone (TSH) 0.63 uIU/mL (0.358-3.74)
== END | disposition home or self-care (01) ==
LOC: MFPLAB 10:24
PROVIDERS: PCP Family Medicine; Visit Provider Family Medicine
DX: G43.001 Migraine without aura, not intractable, with status migrainosus (principal); E03.9 Hypothyroidism, unspecified
CPT/HCPCS: 36415; 80053; 82306; 82607; 82728; 83540; 84439; 84443; 85027; 85652

== ENCOUNTER → 2023-07-24 | Outpatient (CLI) | payer OTHER, SELFPAY ==
--- NOTE | 2023-07-24 15:18 | RAD_ITS ---
STUDY: X-RAY - RIGHT WRIST REASON FOR EXAM: Female, 52 years old. Injury TECHNIQUE: 3 view(s) of the wrist were obtained. COMPARISON: None. FINDINGS: Normal visualized distal radius and ulna. Normal radiocarpal articulation. Normal distal radioulnar articulation. Normal carpal bones. Normal carpal articulations. Normal carpometacarpal articulation of the thumb. Normal second through fifth carpometacarpal articulations. Normal visualized metacarpal bones. The soft tissue structures are unremarkable. RAD/Wrist min 3 Views IMPRESSION: Normal x-ray examination of the wrist. Electronically Signed: Ellis Jones MD at 15:53 EDT ,
== END | disposition home or self-care (01) ==
LOC: MTRAD 15:17
PROVIDERS: PCP Family Medicine; Referring Provider Nurse Practitioner Family; Visit Provider Nurse Practitioner Family
DX: S69.91XA Unspecified injury of right wrist, hand and finger(s), initial encounter (principal); X58.XXXA Exposure to other specified factors, initial encounter
CPT/HCPCS: 73110

== ENCOUNTER → 2023-11-27 | Outpatient (CLI) | payer OTHER, SELFPAY ==
[2023-11-27 10:43] LABS: Anion Gap 6 (5-15); BUN 13 mg/dL (7-18); BUN/Creat Ratio 17.8 RATIO (10-20); Calcium,Total 9.8 mg/dL (8.5-10.1); Chloride 106 mmol/L (98-107); Cholesterol 240 mg/dL (200); Creatinine, Serum 0.73 mg/dL (0.55-1.02); EST Glomerular Filtration Rate 88 mL/min (>60); Est Glom Filt Rate - Afr Amer 106 mL/min (>60); Ferritin 180 ng/mL (8-252); Glucose 88 mg/dL (74-106); High Density Lipoprotein 67 mg/dL; Potassium 5.2 mmol/L (3.5-5.1); Sodium Level 139 mmol/L (136-145); T4 Free Direct 1.03 ng/dL (0.76-1.46); Triglycerides 66 mg/dL; Very Low Density Lipoprotein 13 mg/dL (5-40)
== END | disposition home or self-care (01) ==
LOC: MTLAB 07:16
PROVIDERS: PCP Family Medicine; Referring Provider Family Medicine; Visit Provider Family Medicine
DX: Z13.220 Encounter for screening for lipoid disorders (principal); E03.9 Hypothyroidism, unspecified
CPT/HCPCS: 36415; 80048; 80061; 82728; 84439; 84443

== ENCOUNTER → 2024-01-10 | Outpatient (CLI) | payer OTHER, SELFPAY ==
--- NOTE | 2024-01-10 10:53 | BI_ITS ---
MAMMOGRAPHY - BILATERAL SCREENING REASON FOR EXAM: Female, 53 years old. Routine annual screening examination. PERTINENT HISTORY: Non-contributory. History of prior left breast aspirations. TECHNIQUE: Digital bilateral breast festus (3D mammographic acquisition) in the CC and MLO projections. 2-D mediolateral oblique (MLO) and craniocaudad (CC) views of both breasts were obtained. CAD: Full Field Digital Mammography with Computer Added Detection was performed. COMPARISON: Comparison is made with prior study September 03, 2022 and September 01, 2021. FINDINGS: Breast Composition: The breasts are extremely dense, which lowers the sensitivity of mammography. There are no dominant masses or suspicious calcifications. No other significant abnormalities are identified. There has been no significant change since the prior study. BI/SCRN MAMM (CAD)W/FESTUS BILAT IMPRESSION: Stable bilateral screening mammogram. Yearly follow-up mammogram recommended. (A) ASSESSMENT CATEGORY: BIRADS Category 1: Negative. A letter regarding these results will be sent to the patient by the facility within 30 days. Approximately 10% of breast cancers are not detected by mammography. A normal mammogram should not delay biopsy of a clinically suspicious abnormality. [id number] Electronically Signed: Ellis Jones MD at 9:02 EST ,
== END | disposition home or self-care (01) ==
LOC: OPBI 10:52
PROVIDERS: PCP Family Medicine; Referring Provider Obstetrics & Gynecology; Visit Provider Obstetrics & Gynecology
DX: Z12.31 Encounter for screening mammogram for malignant neoplasm of breast (principal)
CPT/HCPCS: 77063; 77067

== ENCOUNTER → 2024-02-14 | Outpatient (CLI) | payer OTHER, SELFPAY ==
--- NOTE | 2024-02-14 11:14 | RAD_ITS ---
STUDY: X-RAY - LEFT CLAVICLE REASON FOR EXAM: Female, 53 years old. Pain TECHNIQUE: 2 view(s) of the clavicle. COMPARISON: None. FINDINGS: Normal clavicle. Normal acromioclavicular articulation. Normal visualized sternoclavicular articulation. Normal visualized pulmonary apex. RAD/Clavicle IMPRESSION: Normal x-ray examination of the clavicle. Electronically Signed: Neftaly Cantrell MD at 10:23 EST ,
== END | disposition home or self-care (01) ==
LOC: MTRAD 11:08
PROVIDERS: PCP Family Medicine; Referring Provider Family Medicine; Visit Provider Family Medicine
DX: M25.512 Pain in left shoulder (principal)
CPT/HCPCS: 73000

== ENCOUNTER → 2024-06-12 | Outpatient (CLI) | payer OTHER, SELFPAY ==
--- NOTE | 2024-06-12 07:10 | BI_ITS ---
EXAM: SCRN MAMM (CAD)W/FESTUS BILAT DATE: 06/12/2024 CLINICAL HISTORY: F, Age 53 y/o , SCREENING BREAST CANCER RISK ASSESSMENT: Has not been calculated. TECHNIQUE: Bilateral screening digital breast tomosynthesis with 2D and 3D images. Computer aided detection. COMPARISON: Prior exam(s) dated 01/10/2024 and 09/03/2022. FINDINGS: TISSUE DENSITY: The breast tissue is extremely dense which lowers the sensitivity of mammography. Bilateral Breast Mammographic Findings: No significant masses, calcifications or other abnormalities are identified. Stable nodular masslike densities are seen in both breasts. BI/SCRN MAMM (CAD)W/FESTUS BILAT IMPRESSION: OVERALL FINAL ASSESSMENT: BIRADS 1 NEGATIVE RECOMMENDATION: Routine annual follow-up in 1 Year A letter with findings and recommendations will be mailed to the patient. Reading Location: [id number]
== END | disposition home or self-care (01) ==
LOC: OPBI 07:08
PROVIDERS: PCP Family Medicine; Referring Provider Obstetrics & Gynecology; Visit Provider Obstetrics & Gynecology
DX: Z12.31 Encounter for screening mammogram for malignant neoplasm of breast (principal)
CPT/HCPCS: 77063; 77067

== ENCOUNTER → 2024-12-11 | Outpatient (CLI) | payer OTHER, SELFPAY ==
[2024-12-11 11:22] LABS: AST(SGOT) 26 U/L (<=31); Alanine Aminotransfer ALT/SGPT 21 U/L (<=34); Albumin, Serum 4.6 g/dL (3.5-5.0); Alkaline Phosphatase 80 U/L (35-104); Anion Gap 11 (5-15); BUN 14 mg/dL (4-19); BUN/Creat Ratio 19.0 RATIO (10-20); Calcium,Total 9.4 mg/dL (7.6-11.0); Carbon Dioxide 24.9 mmol/L (21.0-32.0); Chloride 105 mmol/L (98-108); Cholesterol 233 mg/dL (<=200); Globulin 2.3 g/dL (2.2-4.2); Glucose 81 mg/dL (70-99); Low Density Lipoprotein Calc. 161 mg/dL; Potassium 4.2 mmol/L (3.3-5.1); T4 Total, Thyroxin 6.9 ug/dL (4.8-13.9); Triglycerides 52 mg/dL; Very Low Density Lipoprotein 10 mg/dL (5-40); cholesterol:hdl ratio screen 3.65
== END | disposition home or self-care (01) ==
LOC: MTLAB 07:19
PROVIDERS: PCP Family Medicine; Referring Provider Family Medicine; Visit Provider Family Medicine
DX: E78.5 Hyperlipidemia, unspecified (principal); E03.9 Hypothyroidism, unspecified
CPT/HCPCS: 36415; 80053; 80061; 84436; 84443